=== PATIENT | male | born 1990 | race Caucasian/White ===

== ENCOUNTER → 2017-08-25 17:45 | Outpatient (CLI) | payer OTHER, SELFPAY ==
--- NOTE | 2017-08-25 | IMM_PTH ---
PATIENT: BRYCE AC LOC: [facility] U#:[id number] AGE/SX: 34/M ROOM: RE08/25/[address]: Dr. Luis Fernando Del Castillo MD : 1990 BED: DIS: SPEC #: [id number] RECD: 08/27/17 12:08 STATUS: JAZMIN REQ #: [id number] NAE: 08/25/17 00:[address]: Luis Fernando Del Castillo DEPT: IMMUNOHISTOCHEMISTRY RECD BY: Anabella Greenberg Tissues: Skin of face, NOS Procedures: SMA (add) CD34 (add) CD45 (add) DESMIN (add) KITA (add) MACRO (add) Vimentin (add) SMM (add) Pankeratin (initial) S-100 (add) PHYSICIAN & INSTITUTION [place] [id number] SPECIMEN INFORMATION: Tissue Source: Facial mass Clinical Info: Benign neoplasm of skin, face Specimen Number: [id number] CPT code: 44698, 73837 x9 METHODOLOGY: Deparaffinized sections of prefer/formalin-fixed tissue or PAP/DQ stained slides are incubated with monoclonal/polyclonal antibodies/oligonucleotide probes. Localization is made via biotin free immunoperoxidase method. Appropriate controls are performed and reacted as expected. Results on target cell population are indicated in the following table: RESULTS: ANTIBODY / CLONE RESULT AE1-3 (AE1/AE3/PCK26) negative KITA (E29) negative S-100 (4C4.9) negative Vimentin (V9) positive CD45 (RP2/18) negative Macro (HAM-56) positive, focal Myosin (simms1) negative Desmin (CE-R-11) negative Actin (1A4) negative CD34 (QBEnd-10) negative These tests were developed and their performance characteristics determined by [facility]. They may not have been cleared or approved by the U.[place]. Food and Drug Administration. The FDA has determined that such clearance or approval is not necessary. INTERPRETATION: Facial mass, excision: Consistent with hypertrophic scar. AM:felipa 08/28/17
--- NOTE | 2017-08-25 10:46 | MASS_PTH ---
PAT[facility]: [facility] U#:[id number] AGE/SX: 34/M ROOM: RE08/25/[address]: Dr. Luis Fernando Del Castillo MD : 1990 BED: DIS: SPEC #: [id number] RECD: 08/25/17 15:39 STATUS: JAZMIN REMelo #: [id number] NAE: 08/25/17 10:[address]: Luis Fernando De lCastillo DEPT: SURGICAL PATHOLOGY RECD BY: Nilo Sims ENTERED: 08/26/17 08:56 SP TYPE: Mass OTHR DR: No Primary Care Phys [facility] Tissues: Skin of face, NOS Procedures: Special Stain Group I Surgery Specimen Level IV AFB Stain (control) GMS Stain (control) HEADER OPERATION: Excision facial mass PRE-OP DIAGNOSIS: Benign neoplasm of skin, face TISSUE SUBMITTED: Facial mass MICROSCOPIC DIAGNOSIS Lesion of face, biopsy: Consistent with hypertrophic scar. AM:felipa 08/28/17 COMMENT Immunohistochemistry ([id number]) supports the above diagnosis. AFB and GMS stains with matched controls are negative. Focal foreign body giant cell reaction to nonpolarizable debris is noted. MICROSCOPIC DESCRIPTION Slides are reviewed. GROSS DESCRIPTION Received is one container labeled with the patient's name and not further designated. The specimen consists of an ellipse of light goyal excised skin measuring 1.6 x 0.7 cm and depth of excision measuring 0.8 cm. The specimen is inked, serially sectioned and totally submitted in one cassette. / AM:felipa 08/26/17 TC:5 CPT: 14797, 00279 x2
== END ==
PROVIDERS: Visit Provider Otolaryngology
DX: D23.30 Other benign neoplasm of skin of unspecified part of face (principal)
CPT/HCPCS: 88305; 88312; 88341; 88342

== ENCOUNTER 2021-05-24 09:57 | Outpatient (CLI) | payer OTHER, SELFPAY | END 2021-05-24 23:59 | disposition short-term general hospital (02) | LOC: LABSPEC 09:58 | PROVIDERS: Referring Provider Physician Assistant; Visit Provider Physician Assistant | DX: Z20.822 Contact with and (suspected) exposure to COVID-19 (principal) | CPT/HCPCS: 87635; U0003; U0005 ==

== ENCOUNTER 2022-08-10 01:02 | Emergency (ER) | payer BC, SELFPAY ==
[2022-08-10 01:05] VITALS: PULSE 102; RESP 18; TEMP 36.6; O2SAT 95; BMI 46.1
[2022-08-10 01:10] VITALS: BP 165/119
[2022-08-10] MEDS: Cephalexin 500 MG Capsule PO (02:02)
[2022-08-10] MEDS: Lidocaine 1% (20 ml mdv) 20 ML Vial INFILT (02:02)
--- NOTE | 2022-08-10 02:05 | EDS_ITS ---
HPI History of Present Illness Chief Complaint: Abscess Informant: patient Onset/Context/Timing Onset: Weeks (1) Context: Gradual Onset Timing: Continuous Quality: Dull Location: Posterior neck Worsened by: Pressure Relieved by: Ibuprofen Narrative Narrative: For presents with an abscess to that he posterior neck that has been getting worse over the last week. Patient describes it as dull. Patient states it is localized to the back of his neck. Patient states it is worse whenever he applies pressure to the area. Patient states nothing makes it better. Patient states he went to an urgent care and they told him to continue to watch it. Patient states he did not prescribe him any antibiotics. Patient states he did not attempt to incise and drain the area. Patient states he has been taking ibuprofen which helps with the pain somewhat. Patient denies any fevers or chills. Patient denies any discharge or drainage. PFSH PFSH Medical History no medical history no medical history Home Medications cephalexin 500 mg capsule 500 mg PO Q6 #40 CAPSULES 08/10/22 [Rx Last Taken Unknown] loratadine 10 mg tablet (Claritin) 10 mg PO DAILY 08/10/22 [History Last Taken Unknown] Allergy/AdvReac Type Severity Reaction Status Date / Time pollen extracts Allergy Rash Verified 08/10/22 01:04 Surgical History no surgical history no surgical history Social History Smoking Status: Never smoker ROS ROS ED Constitutional Constitutional ED: Denies chills or fever(s) Eyes Eyes: Denies blurry vision or change in vision ENT ENT ED: Denies rhinorrhea or sore throat Cardiovascular Cardiovascular: Denies chest pain or palpitations Respiratory/Chest Respiratory/Chest: Denies cough or dyspnea Gastrointestinal Gastrointestinal: Denies nausea or vomiting Genitourinary Genitourinary ED: Denies dysuria or hematuria Musculoskeletal Musculoskeletal: Reports neck pain; Denies back pain Integumentary Reports abscess; Denies rash Neurologic Neurologic: Denies headache(s) or weakness Allergic/Immunologic Allergic/Immunologic ED: Denies mouth swelling or urticaria EXAM Physical Exam Const Vital Signs: 08/10/22 01:05 08/10/22 01:10 Temperature 97.8 F Temperature Source Temporal Pulse Rate 102 H Respiratory Rate 18 Blood Pressure 165/119 H Blood Pressure Mean 134 Pulse Ox 95 Oxygen Delivery Method Room Air Positive well nourished, well developed and obese General Appearance ED: well developed and NAD Nutritional Appearance: obese HEENT Reports moist mucous membranes Neck no lymphadenopathy, supple and no JVD Neuro oriented x3, CN's II-XII intact bilaterally and no sensory deficits noted Sensorium / Orientation: alert Motor Exam: strength 5/5 throughout Psych mental status grossly normal Skin Skin Narrative: There is a tender indurated erythematous area over the posterior neck area. There is some mild erythema. There are some induration noted. There is no fluctuance. There is no discharge or drainage noted. There is full range of motion of the cervical spine. There is no meningeal signs noted. MDM MDM MDM Narrative Medical decision making narrative: Patient was advised of the need for attempts at incision and drainage. Patient is agreeable with this. Informed consent was obtained. The area was cleaned with chlorhexidine prep. The area was anesthetized with 1% plain lidocaine locally. A small cruciate incision was made using an 11 blade scalpel. A small amount of purulent drainage was expressed. The wound was left open. Bacitracin dressing was applied. Patient tolerated the procedure well. Patient was instructed to use warm compresses. Patient was given a dose of Keflex here. P atient was given a prescription for Keflex. Patient was instructed to follow-up with her primary care physician in 5 to 7 days. Patient understood and was agreeable with the plan. All questions were answered. Procedures Other Procedures Procedure(s): The area was cleaned with chlorhexidine prep. The area was anesthetized with 1% plain lidocaine locally. A small cruciate incision was made using an 11 blade scalpel. A small amount of purulent drainage was expressed. The wound was left open. Bacitracin dressing was applied. Patient tolerated the procedure well. Discharge Plan Triage Chief Complaint: Abscess ED Provider: Jai Cartwright Dx/Rx/DC Orders Clinical Impression: Cutaneous abscess of neck Instructions: ED Abscess Incision And Drainage Prescriptions: New cephalexin [cephalexin] 500 mg capsule 500 mg PO Q6 Qty: 40 0RF No Action loratadine [Claritin] 10 mg Tablet 10 mg PO DAILY Primary Care Provider: Care Physician,No Primary Referrals: Care Physician,No Primary [Primary Care Provider] - Disposition Disposition: Home, Self Care
== END 2022-08-10 03:02 | disposition home or self-care (01) ==
PROVIDERS: Emergency Provider Emergency Medicine; Visit Provider Emergency Medicine
DX: L02.11 Cutaneous abscess of neck (principal); E66.9 Obesity, unspecified
CPT/HCPCS: 10060; 99283